=== PATIENT | male | born 1965 | race Asian ===

== ENCOUNTER 2016-08-21 14:25 | Inpatient (IN) | payer BC ==
[~2016-08-21] VITALS: Ht 167.6 cm; Wt 61.2 kg
[~2016-08-21 14:25] MED LIST: ASPI81TA2; LISI-657 PO; METF850T PO; METF850T2 PO; SIMV20TA2
--- NOTE | 2016-08-21 14:30 | NUR ---
AAOX3, CAME TO ER C/O WEAKNESS, NAUSEA, VOMITING, CHILLS, LOW BLOOD SUGAR, ABD CRAMPS SINCE 12 NOON TODAY. SKIN IS WARM AND DRY. RR IS EVEN AND UNLABORED WITH NAD NOTED. AWAITING MD FOR EVAL.
[2016-08-21] MEDS ORDERED: ONDANSETRON HCL/PF 4 MG/2 ML VIAL IVP ONE (15:00)
[2016-08-21] MEDS ORDERED: IV NS 0.9% 1,000 ML BAG IV ONE ×2 (15:00→16:30)
[2016-08-21] MEDS ORDERED: MORPHINE SULFATE INJ 2 MG/ML DISP.SYRIN IV ONE (15:00)
[2016-08-21] MEDS ORDERED: ONDANSETRON HCL/PF 4 MG/2 ML VIAL ONE (15:06)
[2016-08-21] MEDS ORDERED: MORPHINE SULFATE INJ 4 MG/ML DISP.SYRIN ONE (15:06)
[2016-08-21] MEDS ORDERED: IV SET PRIMARY 1 EA INFUS.SET MC ONE ×2 (15:07→16:27)
[2016-08-21] MEDS ORDERED: IV NS 0.9% 1,000 ML ONE ×2 (15:07→16:27)
--- NOTE | 2016-08-21 15:30 | NUR ---
Patient is resting comfortably in bed with eyes closed. Easily aroused. VSS
[2016-08-21 15:36] LABS: BASOPHILS # (AUTO) 0.2 /CMM (0.0-0.2); EOSINOPHILS % (AUTO) 0.2 % (0.0-6.0); HEMATOCRIT 48 % (39-51); LYMPHOCYTES # (AUTO) 0.5 /CMM (0.8-4.8); LYMPHOCYTES % (AUTO) 2.6 % (20.0-44.0); MEAN CORPUSCULAR HEMOGLOBIN 30 PG (26.0-33.0); MEAN CORPUSCULAR HGB CONC 33 g/dl (31.0-36.0); MEAN CORPUSCULAR VOLUME 89 fL (80-96); MONOCYTES # (AUTO) 1.5 /CMM (0.1-1.30); MONOCYTES % (AUTO) 7.7 % (2.0-12.0); NEUTROPHILS # (AUTO) 17.2 /CMM (1.8-8.9); NEUTROPHILS % (AUTO) 88.5 % (43.0-81.0); PLATELET COUNT (AUTO) 221 /CMM (150-450); RDW COEFFICIENT OF VARIATION 12.5 (11.5-15.0); RED BLOOD CELL COUNT(AUTO) 5.35 MIL/uL (4.5-6.0); WHITE BLOOD COUNT (AUTO) 19.4 K/uL (4.3-11.0)
[2016-08-21 15:46] LABS: CALCIUM, SERUM 9.5 mg/dL (8.5-10.1); CREATININE 1.5 mg/dL (0.6-1.3); POTASSIUM 4.1 mmol/L (3.5-5.1)
[2016-08-21 15:50] LABS: INR 0.98 (0.87-1.13); PROTHROMBIN TIME 10.2 SECS (9.5-12.7)
[2016-08-21 15:51] LABS: ALBUMIN 4.5 g/dL (3.4-5.0); BILIRUBIN,DIRECT 0.1 mg/dL (0.0-0.2); BILIRUBIN,TOTAL 0.3 mg/dL (0.2-1.0); TOTAL PROTEIN, SERUM 8.2 g/dL (6.4-8.2)
--- NOTE | 2016-08-21 16:25 | NUR ---
Patient is resting comfortably in bed with eyes closed. Easily aroused. VSS
[2016-08-21] MEDS ORDERED: IV SET PRIMARY PUMP SET 1 EA INFUS.SET MC ONE ×2 (16:27→17:55)
[2016-08-21] MEDS ORDERED: CEFTRIAXONE 1GM BAG (ER ONLY) 50 ML IV ONE ×2 (16:27→16:30)
[2016-08-21 16:52] LABS: APPEARANCE,URINE Clear (CLEAR); BILIRUBIN,URINE Negative (NEGATIVE); BLOOD, URINE Trace-intact Ery/uL (NEGATIVE); COLOR,URINE Yellow (YELLOW); KETONES,URINE Negative (NEGATIVE); LEUKOCYTE ESTERASE ,URINE Negative (NEGATIVE); NITRITE, URINE Negative (NEGATIVE); PH,URINE 5.5 (5.0-8.0); PROTEIN,URINE 30 mg/dl (NEGATIVE); UGLUCOSE Negative (NEGATIVE); UROBILINOGEN,URINE 0.2 EU/dL (0.2)
[2016-08-21] MEDS ORDERED: IV NS 0.9% 1,000 ML IV PRN ×2 (17:13→17:28)
[2016-08-21 17:14] LABS: ADD URINE CULTURE NO; BACTERIA,URINE None seen /HPF (None Seen); SQUAMOUS EPITHELIAL CELL,UR Few /HPF (None Seen); WBC,URINE 0-2 /HPF (0-3)
--- NOTE | 2016-08-21 17:22 | NUR ---
REPORT GIVEN TO NURSE FOR 206-2 FOR JARAD.
[2016-08-21] MEDS ORDERED: HYDROCODONE/APAP 5/325MG 1 EACH TABLET PO PRN (17:30)
[2016-08-21] MEDS ORDERED: Z GUARD REMEDY 2 OZ OINT TP PRN (17:30)
[2016-08-21] MEDS ORDERED: DEXTROSE 50%-WATER 50 ML DISP.SYRIN IV PRN (17:30)
[2016-08-21] MEDS ORDERED: MORPHINE SULFATE INJ 2 MG/ML DISP.SYRIN IV PRN (17:30)
[2016-08-21] MEDS ORDERED: INSULIN REGULAR, HUMAN 100 UNIT/ML 3 ML VIAL SQ PRN (17:30)
[2016-08-21] MEDS: BLOOD SUGAR DIAGNOSTIC 1 EACH STRIP IN SCH ×2 (17:30→21:11)
[2016-08-21] MEDS ORDERED: ACETAMINOPHEN 325 MG TABLET PO PRN (17:30)
[2016-08-21] MEDS ORDERED: MAG HYDROX/AL HYDROX/SIMETH 30 ML UDC PO PRN (17:30)
[2016-08-21] MEDS ORDERED: ONDANSETRON HCL/PF 4 MG/2 ML VIAL IVP PRN (17:30)
--- NOTE | 2016-08-21 18:15 | NUR ---
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 On arrival, patient is A/OX4, vital signs within normal range, denies any pain or discomfort. No vomiting or diarrhea since arriving. Patient fully admitted, skin intact. IV fluids infusing at 75ml/hr via right AB 18G. No signs if infiltration seen. Blood sugar 102, no coverage needed. Oriented to new surroundings, aware of how to use call light, operate bed and use television remote. Will continue to observe and endorse to extract operator.
[2016-08-21] MEDS ORDERED: SECONDARY IV SET 1 EA INFUS.SET MC ONE (19:34)
[2016-08-21] MEDS: METRONIDAZOLE 500MG/ NS 100ML 500 MG in PREMIX 1 EA IV SCH (19:35)
[2016-08-21 20:00] VITALS: BP 106/64
[2016-08-21] MEDS ORDERED: LEVOFLOXACIN 750 MG /D5W 150ML 750 MG in PREMIX 1 EA IV SCH (20:00)
--- NOTE | 2016-08-21 20:00 | NUR ---
RN NOTES RECEIVED PX AWAKE, ALERT, ORIENTED X 3, ON ROOM AIR, NOT IN DISTRESS; PX MOVES BY SELF INDEPENDENTLY; PIV FLUSHED,PATENT AND INTACT; DISCUSSED PLAN OF CARE; DENIED PAIN, SOB, N/V, DIZZINESS; FAMILY AT BEDSIDE; INFORMED OF THE NEED FOR STOOL SAMPLE.
[2016-08-21 20:04] VITALS: BP 106/64
--- NOTE | 2016-08-21 21:00 | NUR ---
RN NOTES REFUSED INSULIN, EDUCATED AND EXPLAINED ITS NEED.
[2016-08-22] MEDS: METRONIDAZOLE 500MG/ NS 100ML 500 MG in PREMIX 1 EA IV SCH ×2 (03:18→11:20)
[2016-08-22 06:15] LABS: BASOPHILS % (AUTO) 0.3 % (0.0-2.0); EOSINOPHILS % (AUTO) 0.2 % (0.0-6.0); HEMATOCRIT 41 % (39-51); HEMOGLOBIN 13.3 g/dL (13.5-17.5); LYMPHOCYTES # (AUTO) 1.1 /CMM (0.8-4.8); LYMPHOCYTES % (AUTO) 8.4 % (20.0-44.0); MEAN CORPUSCULAR HEMOGLOBIN 29 PG (26.0-33.0); MEAN CORPUSCULAR HGB CONC 33 g/dl (31.0-36.0); MEAN CORPUSCULAR VOLUME 90 fL (80-96); MONOCYTES # (AUTO) 0.9 /CMM (0.1-1.30); MONOCYTES % (AUTO) 6.6 % (2.0-12.0); NEUTROPHILS # (AUTO) 11.2 /CMM (1.8-8.9); NEUTROPHILS % (AUTO) 84.5 % (43.0-81.0); PLATELET COUNT (AUTO) 189 /CMM (150-450); RED BLOOD CELL COUNT(AUTO) 4.52 MIL/uL (4.5-6.0); WHITE BLOOD COUNT (AUTO) 13.2 K/uL (4.3-11.0)
--- NOTE | 2016-08-22 06:24 | NUR ---
RN NOTES PX CONDITION AND NEURO STATUS UNCHANGED; PX AWAKE, DENIED PAIN, SOB, N/V; AMBULATING IN HIS ROOM; ASKED TO DISCONTINUE IVF RIGHT NOW, EDUCATED ON ITS NEED; BLOOD SUGAR 138, REFUSED INSULIN, EDUCATED ON ITS NEED; NOT IN DISTRESS; NEEDS ATTENDED; CALL LIGHT WITHIN REACH; WILL ENDORSE TO NEXT RN.
[2016-08-22 06:33] LABS: ALBUMIN 3.4 g/dL (3.4-5.0); BILIRUBIN,TOTAL 0.5 mg/dL (0.2-1.0); CREATININE 1.3 mg/dL (0.6-1.3); MAGNESIUM 1.4 mg/dL (1.8-2.4); PHOSPHORUS 2.9 mg/dL (2.5-4.9); POTASSIUM 4.2 mmol/L (3.5-5.1); TOTAL PROTEIN, SERUM 6.6 g/dL (6.4-8.2)
[2016-08-22] MEDS: BLOOD SUGAR DIAGNOSTIC 1 EACH STRIP IN SCH ×2 (06:40→12:04)
[2016-08-22 06:44] LABS: THYROID STIMULATING HORMONE 0.993 uIU/mL (0.358-3.74)
[2016-08-22] MEDS ORDERED: PANTOPRAZOLE 40 MG TABLET.DR PO SCH (07:30)
[2016-08-22 08:00] VITALS: BP 122/75
[2016-08-22 08:03] VITALS: BP 122/75
--- NOTE | 2016-08-22 08:15 | NUR ---
AM RN NOTES RECEIVED PT IN STABLE CONDITION, NO SOB OR DISTRESS NOTED, NO N/V, CONSUMED HIS BREAKFAST, TOLERATED WELL, AT BEDSIDE, PT IS REQUESTING TO SEE PMD, WILL MONITOR PT.
[2016-08-22] MEDS ORDERED: LISINOPRIL (10MG) 10 MG TABLET PO SCH (09:00)
--- NOTE | 2016-08-22 09:30 | NUR ---
ASSIGNED GNP DELON INFORMED TO VISIT PT IN AM (PER PT'S REQUEST)
--- NOTE | 2016-08-22 11:16 | NUR ---
JO RAMOS AT BEDSIDE.
[2016-08-22] MEDS ORDERED: METR500T PO (11:28)
[2016-08-22] MEDS ORDERED: LEVO750T46 PO (11:28)
[2016-08-22] MEDS ORDERED: MAGNESIUM OXIDE 400 MG TABLET PO ONE (12:00)
--- NOTE | 2016-08-22 13:40 | NUR ---
PT DISCHARGED HOME IN STABLE CONDITION, NO DIZZINESS OR PAIN NOTED, ASSISTED BY VIA PERSONAL CAR, EDUCATION DONE, INSTRUCTIONS GIVEN, PT LEFT HOSPITAL SAFELY.
== END 2016-08-22 13:40 | disposition home or self-care (01) | DRG 871 ==
LOC: ER 14:33 → TELE2 17:16 → MEDSG2 17:47
PROVIDERS: ADMIT Contractor; ATTEND Contractor
DX: A41.9 Sepsis, unspecified organism (principal); N17.0 Acute kidney failure with tubular necrosis; K52.9 Noninfective gastroenteritis and colitis, unspecified; E86.0 Dehydration; E11.9 Type 2 diabetes mellitus without complications; I10 Essential (primary) hypertension; G40.909 Epilepsy, unspecified, not intractable, without status epilepticus; R65.20 Severe sepsis without septic shock
CPT/HCPCS: 36415; 71010-TC; 80048-TC; 80053-TC; 80061-TC; 80076-TC; 81000-TC; 82962-TC; 83605-TC; 83690-TC; 83735-TC; 84100-TC; 84443-TC; 85025-TC; 85730-TC; 87040-TC; 87081-TC; 89055; A4216; A4606; J0696; J1815; J1956; J2270; J2405; J3490; J7030; Z7610